=== PATIENT | male | born 2000 | race Caucasian/White ===

== ENCOUNTER 2022-01-05 14:22 | Emergency (ER) | payer BC, MEDICAID ==
[~2022-01-05] VITALS: Ht 175.3 cm; Wt 86.0 kg
[2022-01-05] MEDS ORDERED: BACITRACIN ZINC OINT UDPKT TOP ONE (14:45)
[2022-01-05 15:40] LABS: BASOPHILS % 0.5 % (0.0-2.0); EOSINOPHILS % 0.5 % (0.0-5.0); HEMATOCRIT. 42.8 % (42.0-52.0); HEMOGLOBIN. 14.7 g/dL (14.0-18.0); LYMPHOCYTES % 14.3 % (20.0-50.0); MEAN CORPUSCULAR HEMOGLOBIN 33.3 pg (28.0-32.0); MEAN CORPUSCULAR VOLUME 96.6 fL (80.0-94.0); MEAN PLATELET VOLUME 9.4 fl (7.4-10.4); MONOCYTES % 7.9 % (2.0-8.0); NEUTROPHILS % 76.8 % (40.0-76.0); PLATELET 204 x1000/uL (130-400); RED BLOOD CELL COUNT 4.43 mill/uL (4.7-6.1); RED CELL DISTRIBUTION WIDTH 13.7 % (11.6-14.6)
[2022-01-05 15:48] LABS: CHLORIDE 110 mEq/L (98-107)
[2022-01-05 15:59] LABS: ETHANOL BLOOD < 10 mg/dL
[2022-01-05 19:44] LABS: CLARITY URINE CLOUDY (CLEAR); COLOR URINE YELLOW (YELLOW); KETONES URINE NEGATIVE (NEGATIVE); LEUKOCYTE ESTERASE URINE NEGATIVE (NEGATIVE); NITRITE URINE NEGATIVE (NEGATIVE); OCCULT BLOOD URINE NEGATIVE (NEGATIVE); PH URINE 7.5 (4.5-8.0); PROTEIN URINE NEGATIVE (NEGATIVE); SPECIFIC GRAVITY URINE 1.017 (1.005-1.030); UROBILINOGEN URINE 0.2 E.U./dL (0.2-1.0)
[2022-01-05] MEDS ORDERED: OLANZAPINE 10 MG/VIAL IM STA (20:12)
[2022-01-05] MEDS ORDERED: LORAZEPAM 2MG/ML CPJ IM STA (20:12)
[2022-01-05 20:25] LABS: *AMPHETAMINES SCREEN URINE NEGATIVE (NEGATIVE); *BARBITURATES SCREEN URINE NEGATIVE (NEGATIVE); *BENZODIAZEPINES SCREEN URINE NEGATIVE (NEGATIVE); *COCAINE SCREEN URINE NEGATIVE (NEGATIVE); CANNABINOID URINE SCREEN NEGATIVE (NEGATIVE); METHADONE URINE SCREEN NEGATIVE (NEGATIVE); OPIATES URINE SCREEN NEGATIVE (NEGATIVE); PHENCYCLIDINE URINE SCREEN NEGATIVE (NEGATIVE)
[2022-01-08 07:02] VITALS: BP 96/46
== END 2022-01-08 11:26 | disposition home or self-care (01) ==
LOC: ER 14:22
DX: S61.512A Laceration without foreign body of left wrist, initial encounter (principal); F32.A Depression, unspecified; R45.4 Irritability and anger; F06.8 Other specified mental disorders due to known physiological condition; F41.9 Anxiety disorder, unspecified; F90.9 Attention-deficit hyperactivity disorder, unspecified type; Z75.1 Person awaiting admission to adequate facility elsewhere; Z20.822 Contact with and (suspected) exposure to COVID-19; X78.8XXA Intentional self-harm by other sharp object, initial encounter; Y93.89 Activity, other specified; Y92.018 Other place in single-family (private) house as the place of occurrence of the external cause
CPT/HCPCS: 36415; 80053; 80305; 80307; 80320; 80329; 81003; 85025; 87426; 96372; 99285; C9803; J2060; J3490; G0480

== ENCOUNTER 2024-12-31 18:40 | Emergency (ER) | payer BC, MEDICAID ==
[~2024-12-31] VITALS: Ht 185.4 cm; Wt 91.0 kg
[2024-12-31 18:47] VITALS: O2SAT 95
[2024-12-31] MEDS: MORPHINE SULFATE 4 MG/ML INJ (FOR IV/IM USE) IV ONE (19:38)
[2024-12-31] MEDS: SODIUM CHLORIDE 0.9% 1,000 ML IV ONE (19:39)
[2024-12-31] MEDS: CEFTRIAXONE 2GM/50ML 50 ML IV ONE (19:54)
[2024-12-31 20:13] LABS: BASOPHILS % 0.2 % (0.0-2.0); EOSINOPHILS % 1.1 % (0.0-5.0); HEMATOCRIT. 40.4 % (42.0-52.0); HEMOGLOBIN. 13.8 g/dL (14.0-18.0); LYMPHOCYTES % 16.5 % (20.0-50.0); MEAN PLATELET VOLUME 8.6 fl (7.4-10.4); MONOCYTES % 9.2 % (2.0-8.0); NEUTROPHILS % 73.0 % (40.0-76.0); PLATELET 203 x1000/uL (130-400); RED BLOOD CELL COUNT 4.34 mill/uL (4.7-6.1); RED CELL DISTRIBUTION WIDTH 13.9 % (11.6-14.6)
[2024-12-31 20:29] LABS: CREATININE 1.2 mg/dL (0.6-1.3); UREA NITROGEN BLOOD 9 mg/dL (9-23)
[2024-12-31] MEDS: VANCOMYCIN 1G PREMIX 200 ML IV SCH (21:02)
[2024-12-31 23:26] VITALS: BP 132/91; PULSE 87; RESP 15; TEMP 36.9; O2SAT 99
== END 2024-12-31 23:46 | disposition short-term general hospital (02) ==
LOC: ER 18:40 → CMPBEDREQ 01-01 07:35
DX: M65.311 Trigger thumb, right thumb (principal); F31.9 Bipolar disorder, unspecified; W23.0XXA Caught, crushed, jammed, or pinched between moving objects, initial encounter; Y93.89 Activity, other specified; Y92.89 Other specified places as the place of occurrence of the external cause; Y99.8 Other external cause status
CPT/HCPCS: 99291; 96365; 96367; 96375; 80048; 85025; 87040; 36415; 73140; J0696; J3373; J2270; J7030